=== PATIENT | male | born 1945 | race Caucasian/White ===

== ENCOUNTER 2024-03-14 01:45 | Inpatient (IN) | payer OTHER ==
[~2024-03-14] VITALS: Ht 177.8 cm; Wt 78.9 kg
[2024-03-14 02:39] LABS: BASOPHILS % (AUTO) 0.4 % (0.0-2.0); EOSINOPHILS # (AUTO) 0.2 K/uL (0.0-0.7); EOSINOPHILS % (AUTO) 1.9 % (0.0-7.0); HEMATOCRIT 51.8 % (36.7-47.1); HEMOGLOBIN 16.6 g/dL (12.5-16.3); LYMPHOCYTES # (AUTO) 1.1 K/uL (0.8-4.8); LYMPHOCYTES % (AUTO) 14.3 % (20.5-51.5); MEAN CORPUSCULAR HEMOGLOBIN 29.9 uug (23.8-33.4); MEAN CORPUSCULAR HGB CONC 32 g/dL (32.5-36.3); MEAN CORPUSCULAR VOLUME 93.4 fL (73.0-96.2); MONOCYTES % (AUTO) 12.6 % (0.0-11.0); NEUTROPHILS # (AUTO) 5.6 K/uL (1.8-8.9); NEUTROPHILS % (AUTO) 70.8 % (38.5-71.5); PLATELET COUNT (AUTO) 98 K/uL (152-348); RED BLOOD CELL COUNT(AUTO) 5.54 MIL/uL (4.06-5.63); RED CELL DISTRIBUTION WIDTH 15.1 % (12.1-16.2)
[2024-03-14 02:44] LABS: DIFFERENTIAL COMMENT 1
[2024-03-14] MEDS ORDERED: ENOXAPARIN SODIUM 60 MG/0.6 ML DISP.SYRIN SQ ONE (03:03)
[2024-03-14 03:11] LABS: CALCIUM 9.4 mg/dL (8.5-10.1); CARBON DIOXIDE 28 mmol/L (21-32); CHLORIDE 107 mmol/L (98-107); CREATININE 2.5 mg/dL (0.6-1.3); GLUCOSE 132 mg/dL (74-106); POTASSIUM 5.1 mmol/L (3.5-5.1); SODIUM SERUM 143 mmol/L (136-145); UREA NITROGEN, BLOOD 59 mg/dL (7-18)
[2024-03-14] MEDS: ENOXAPARIN SODIUM 60 MG/0.6 ML DISP.SYRIN SQ ONE (03:13)
[2024-03-14] MEDS ORDERED: levoFLOXacin 750MG/D5W 150 ML IV ONE (03:15)
[2024-03-14 03:24] LABS: ALANINE AMINOTRANSFERASE 16 U/L (16-63); ALBUMIN 3.2 g/dL (3.4-5.0); ALKALINE PHOSPHATASE 118 U/L (50-136); ASPARTATE AMINOTRANSFERASE 14 U/L (15-37); BILIRUBIN,DIRECT 0.4 mg/dL (0.0-0.2); BILIRUBIN,TOTAL 1.3 mg/dL (0.2-1.0); NT-PRO BNP 15540 pg/mL (0-125)
[2024-03-14] MEDS: levoFLOXacin 750 MG/D5W 150 ML PIGGYBACK IV ONE (03:24)
[2024-03-14] MEDS: IV NORMAL SALINE 500 ML BAG IV ONE ×2 (04:13→04:41)
[2024-03-14] MEDS ORDERED: ACETAMINOPHEN 325 MG TABLET PO PRN (04:30)
[2024-03-14] MEDS ORDERED: levoFLOXacin 750MG/D5W 750 MG in PREMIXED 1 EACH IV SCH (04:30)
[2024-03-14] MEDS ORDERED: DEXTROSE 50% 50 ML DISP.SYRIN IV PRN (04:30)
[2024-03-14] MEDS ORDERED: MAGNESIUM HYDROXIDE 30 ML LIQUID UDC PO PRN (04:30)
[2024-03-14] MEDS ORDERED: REMEDY ESSENTIAL ZINC PASTE 113 GM TP PRN (04:30)
[2024-03-14] MEDS ORDERED: ONDANSETRON 4 MG/2 ML VIAL IV PRN (04:30)
[2024-03-14 11:23] VITALS: BP 107/51; TEMP 97.8; O2SAT 97
[2024-03-14] MEDS ORDERED: LEVO100T10 PO (11:30)
[2024-03-14] MEDS ORDERED: CARV6.252 PO (11:30)
[2024-03-14] MEDS ORDERED: INSU3INS6 SQ (11:30)
[2024-03-14] MEDS ORDERED: ATOR20TA PO (11:30)
[2024-03-14] MEDS ORDERED: MYCO250C PO (11:30)
[2024-03-14] MEDS ORDERED: LIRA0.6P2 SQ (11:30)
[2024-03-14] MEDS ORDERED: APIX5TAB PO (11:30)
[2024-03-14] MEDS ORDERED: TACR1CAP2 PO (11:36)
[2024-03-14] MEDS ORDERED: TACR0.5C4 PO (11:36)
[2024-03-14] MEDS: BLOOD SUGAR DIAGNOSTIC 1 EACH STRIP VI SCH (12:02)
[2024-03-14] MEDS: FUROSEMIDE 40 MG/4 ML VIAL IV SCH (12:06)
[2024-03-14] MEDS: PANTOPRAZOLE SODIUM 40 MG VIAL IV SCH (12:06)
[2024-03-14] MEDS: TACROLIMUS ANHYDROUS 0.5 MG CAPSULE PO SCH ×2 (14:54→17:36)
[2024-03-14 16:18] VITALS: BP 114/74; TEMP 98.2; O2SAT 97
[2024-03-14 16:20] VITALS: O2SAT 97
[2024-03-14 16:26] LABS: THYROID STIMULATING HORMONE 0.11 mIU/mL (0.358-3.740)
[2024-03-14] MEDS ORDERED: APIXABAN 5 MG TABLET PO SCH (17:00)
[2024-03-14] MEDS: MYCOPHENOLATE MOFETIL 250 MG CAPSULE PO SCH (17:36)
[2024-03-14 19:00] VITALS: BP 129/81; TEMP 97.6; O2SAT 94
[2024-03-14] MEDS: ATORVASTATIN 20 MG TABLET PO SCH (20:27)
[2024-03-14] MEDS: APIXABAN 2.5 MG TABLET PO SCH (20:30)
[2024-03-14] MEDS ORDERED: LEVALBUTEROL HCL NEB 0.63 MG/3 ML NEBU NEB PRN (21:30)
[2024-03-14 21:42] VITALS: O2SAT 96
[2024-03-14 23:32] LABS: *BILIRUBIN,URIN NEGATIVE (NEGATIVE); *BLOOD, URINE NEGATIVE (NEGATIVE); *CLARITY,URINE CLEAR (CLEAR); *COLOR,URINE YELLOW (YELLOW); *KETONES,URINE NEGATIVE (NEGATIVE); *PROTEIN,URINE NEGATIVE (NEGATIVE); *UROBILINOGEN,URINE 0.2 E.U./dl (NORMAL); LEUKOCYTE ESTERASE ,URINE NEGATIVE (NEGATIVE); NITRITE, URINE NEGATIVE (NEGATIVE); UGLUCOSE NEGATIVE (NEGATIVE)
[2024-03-14 23:36] LABS: *CREATININE,URINE 52.9 mg/dL (30-125); *SODIUM RNDM,URINE 96 mmol/L (40-220); *URINE TOTAL PROTEIN RANDOM < 6.0 mg/dL (<150/24HR)
[2024-03-15] VITALS: BP 118/79; TEMP 97.5; O2SAT 95
[2024-03-15 04:00] VITALS: BP 124/75; TEMP 97.9; O2SAT 96
[2024-03-15] MEDS ORDERED: LEVOTHYROXINE SODIUM 100 MCG TABLET PO SCH (07:00)
[2024-03-15 07:33] VITALS: BP 118/76; TEMP 97.5; O2SAT 98
[2024-03-15 09:26] LABS: BASOPHILS % (AUTO) 0.4 % (0.0-2.0); EOSINOPHILS # (AUTO) 0.1 K/uL (0.0-0.7); EOSINOPHILS % (AUTO) 1.8 % (0.0-7.0); HEMATOCRIT 48.8 % (36.7-47.1); HEMOGLOBIN 15.3 g/dL (12.5-16.3); LYMPHOCYTES # (AUTO) 1.2 K/uL (0.8-4.8); MEAN CORPUSCULAR HEMOGLOBIN 29.5 uug (23.8-33.4); MEAN CORPUSCULAR HGB CONC 31 g/dL (32.5-36.3); MEAN CORPUSCULAR VOLUME 94.1 fL (73.0-96.2); MONOCYTES # (AUTO) 0.9 K/uL (0.1-1.30); MONOCYTES % (AUTO) 12.6 % (0.0-11.0); NEUTROPHILS # (AUTO) 5.2 K/uL (1.8-8.9); NEUTROPHILS % (AUTO) 69.2 % (38.5-71.5); PLATELET COUNT (AUTO) 74 K/uL (152-348); RED BLOOD CELL COUNT(AUTO) 5.18 MIL/uL (4.06-5.63); RED CELL DISTRIBUTION WIDTH 15.1 % (12.1-16.2); WHITE BLOOD COUNT (AUTO) 7.5 K/uL (3.6-10.2)
[2024-03-15 09:29] LABS: DIFFERENTIAL COMMENT 1
[2024-03-15 09:31] LABS: ALANINE AMINOTRANSFERASE 11 U/L (16-63); ALKALINE PHOSPHATASE 106 U/L (50-136); ASPARTATE AMINOTRANSFERASE 10 U/L (15-37); BILIRUBIN,TOTAL 1.2 mg/dL (0.2-1.0); CALCIUM 9.2 mg/dL (8.5-10.1); CARBON DIOXIDE 26 mmol/L (21-32); CHLORIDE 109 mmol/L (98-107); CREATININE 2.5 mg/dL (0.6-1.3); GLUCOSE 98 mg/dL (74-106); MAGNESIUM 2.1 mg/dL (1.8-2.4); PHOSPHOROUS 4.2 mg/dL (2.5-4.9); POTASSIUM 5.1 mmol/L (3.5-5.1); SODIUM SERUM 142 mmol/L (136-145); TOTAL PROTEIN, SERUM 6.6 g/dL (6.4-8.2); UREA NITROGEN, BLOOD 61 mg/dL (7-18)
[2024-03-15 09:50] LABS: CREATINE KINASE, TOTAL 53 U/L (39-308)
[2024-03-15 11:40] VITALS: BP 117/76; TEMP 97.7; O2SAT 100
[2024-03-15 12:00] VITALS: O2SAT 98
[2024-03-15] MEDS: INSULIN REGULAR, HUMAN 1000 UNIT/10 ML VIAL SQ PRN (12:00)
[2024-03-15 20:08] LABS: EOSINOPHILS % (MANUAL) 2 % (0-8); LYMPHOCYTES % (MANUAL) 15 % (20-40); MONOCYTES % (MANUAL) 8 % (2-10); NEUTROPHILS % (MANUAL) 75 % (42-75); PLATELET ESTIMATE DECREASED
[2024-03-15 20:15] LABS: ANISOCYTOSIS 1+; TEAR DROP CELLS OCC
[2024-03-16] MEDS ORDERED: levoFLOXacin 750MG/D5W 750 MG in PREMIXED 1 EACH IV SCH (03:00)
[2024-03-16] MEDS ORDERED: PANTOPRAZOLE SODIUM 40 MG TABLET.DR PO SCH (07:00)
[2024-03-16 07:08] LABS: PTH, INTACT 35 pg/mL (15-65)
[2024-03-18 12:06] LABS: A/G RATIO 0.9 (0.7-1.7); ALBUMIN 2.9 g/dL (2.9-4.4); ALPHA-1-GLOBULIN 0.3 g/dL (0.0-0.4); ALPHA-2-GLOBULIN 0.8 g/dL (0.4-1.0); GAMMA GLOBULIN 1.1 g/dL (0.4-1.8); GLOBULIN, TOTAL 3.2 g/dL (2.2-3.9); M-SPIKE Not Observed g/dL (Not Observed)
== END 2024-03-15 14:27 | disposition home or self-care (01) | DRG 314 ==
LOC: ER 01:47 → TRANSITION 09:05 → TELE3 10:01
PROVIDERS: ATTEND Internal Medicine
DX: T86.22 Heart transplant failure (principal); I50.23 Acute on chronic systolic (congestive) heart failure; N17.0 Acute kidney failure with tubular necrosis; I13.0 Hypertensive heart and chronic kidney disease with heart failure and stage 1 through stage 4 chronic kidney disease, or unspecified chronic kidney disease; I42.9 Cardiomyopathy, unspecified; I25.811 Atherosclerosis of native coronary artery of transplanted heart without angina pectoris; R17 Unspecified jaundice; E44.1 Mild protein-calorie malnutrition; D68.59 Other primary thrombophilia; Z79.621 Long term (current) use of calcineurin inhibitor; N18.9 Chronic kidney disease, unspecified; Z79.890 Hormone replacement therapy; Z79.69 Long term (current) use of other immunomodulators and immunosuppressants; E89.0 Postprocedural hypothyroidism; Z85.46 Personal history of malignant neoplasm of prostate; G89.29 Other chronic pain; M15.9 Polyosteoarthritis, unspecified; Z86.718 Personal history of other venous thrombosis and embolism; Z79.01 Long term (current) use of anticoagulants; Z74.09 Other reduced mobility; N40.0 Benign prostatic hyperplasia without lower urinary tract symptoms; Z96.651 Presence of right artificial knee joint; Z90.49 Acquired absence of other specified parts of digestive tract; Z87.442 Personal history of urinary calculi; Z86.16 Personal history of COVID-19; Z85.828 Personal history of other malignant neoplasm of skin; R73.9 Hyperglycemia, unspecified; R79.89 Other specified abnormal findings of blood chemistry; Z59.89 Other problems related to housing and economic circumstances; Z95.5 Presence of coronary angioplasty implant and graft
CPT/HCPCS: 36415; 70030-TC; 71045; 76770; 78580; 83735; 83970; 84100; 84155; 84165; 84300; 84443; 84480; 84484; 85025; 93307; A4663; A9540; G0378; J1650; J1815; J1940; J1956; J2470; J7507; J7517